=== PATIENT | female | born 1990 | race Two or more races ===

== ENCOUNTER 2021-02-07 08:53 | Inpatient (IN) | payer SELFPAY ==
[~2021-02-07] VITALS: Ht 169.4 cm; Wt 66.8 kg
[2021-02-07 09:04] VITALS: BP 135/90
[2021-02-07] MEDS ORDERED: IV RINGERS,LACTATED 1000ML 1,000 ML IV SCH ×3 (09:15→13:30)
[2021-02-07 09:50] LABS: BILIRUBIN,URINE NEGATIVE (NEG); CLARITY,URINE CLEAR; COLOR,URINE YELLOW; NITRITE,URINE NEGATIVE (NEG); PROTEIN,URINE NEGATIVE (NEG-TRACE); UROBILINOGEN,URINE 0.2 mg/dL (0.2 mg/dL)
[2021-02-07 09:55] LABS: BACTERIA,URINE FEW /HPF (0-FEW); RBC,URINE OCC /HPF (0-2); WBC,URINE 0 /HPF (0-4)
[2021-02-07 10:27] LABS: AMNIO PT POSITIVE
[2021-02-07] MEDS ORDERED: OXYTOCIN 30 UNIT/500 ML PREMIX 500 ML IV PRN ×3 (10:45→16:30)
[2021-02-07] MEDS ORDERED: IBUPROFEN 400 MG TABLET. PO PRN (10:45)
[2021-02-07] MEDS ORDERED: LIDOCAINE 1% PF 30 ML VIAL. INJ PRN (10:45)
[2021-02-07] MEDS ORDERED: 0.9 % SODIUM CHLORIDE 10 ML DISP.SYRIN. IV PRN ×2 (10:45→16:30)
[2021-02-07] MEDS ORDERED: TERBUTALINE 1 MG/ML VIAL. SQ PRN (10:45)
[2021-02-07 10:58] LABS: BASO # 0.1 x10^3/uL (0.0-0.2); BASO % 0 % (0-3); EOS % 0 % (0-3); HEMATOCRIT 33.8 % (36.0-47.0); HEMOGLOBIN 11.5 g/dL (12.0-15.5); LYMPH # 1.6 x10^3/uL (1.0-4.8); LYMPH % 9 % (24-48); MEAN CORPUSCULAR HEMOGLOBIN 29 pg (25-35); MEAN CORPUSCULAR HGB CONC 34 g/dL (31-37); MEAN CORPUSCULAR VOLUME 84 fL (79-100); MONO % 6 % (0-9); NEUT % 85 % (31-73); PLATELET COUNT 239 x10^3/uL (140-400); RED BLOOD COUNT 4.01 x10^6/uL (3.50-5.40); RED CELL DISTRIBUTION WIDTH 14.9 % (11.5-14.5); WHITE BLOOD COUNT 17.8 x10^3/uL (4.0-11.0)
[2021-02-07 11:07] LABS: CREATININE 0.6 mg/dL (0.6-1.0); GFR 118.2
[2021-02-07 11:13] LABS: ALBUMIN 2.6 g/dL (3.4-5.0); ALBUMIN/GLOBULIN RATIO 0.7 (1.0-1.7); TOTAL BILIRUBIN 0.2 mg/dL (0.2-1.0); TOTAL PROTEIN 6.6 g/dL (6.4-8.2)
--- NOTE | 2021-02-07 11:16 | PDOC1 ---
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 An aminosure was sent and returned positive. The pt was found to be dilated to 3 cm. She had previously been 1-2 cm in the office two days prior. The pts has been complicated by GDM. She was dxed with GDM in 12/05/20, but only started recording her FSBS at the beginning of this month. Her FSBS have been relatively good since that time. At the last visit over half of her fastings are above 90, but most are very close. The majority of her PP are below 120. She has also developed BP issues over the last two wks. She has remained w/o s/s of preeclampsia. PMH: Denies PSH: Denies Meds: PNV All: NKDA OBHx: G1 SH: no tob, no EtOH FH: noncontributory Allergies: Coded Allergies: No Known Drug Allergies (Unverified , 02/07/21) Physical Exam: PE: GENERAL: No apparent distress. Alert and oriented. HEENT: Head normocephalic, atraumatic. NECK: Supple LUNGS: Clear to auscultation. HEART: RRR, S1, S2 present, pulses intact ABDOMEN: Soft, positive bowel sounds. EXTREMITIES: No cyanosis or edema. NEUROLOGIC: Normal speech, normal tone PSYCHIATRIC: Normal affect, normal mood. SKIN: No ulceration. FHT: 150s +acels/no decels/mLTV Start: 2-3 min SVE: 4/75/-2 Labs: Laboratory Tests Test 02/07/21 09:10 02/07/21 09:12 02/07/21 10:40 Urine Collection Type Unknown Urine Color Yellow Urine Clarity Clear Urine pH 7.0 (<5.0-8.0) Urine Specific [place] 1.015 (1.000-1.030) Urine Protein Negative mg/dL (NEG-TRACE) Urine Glucose (UA) Negative mg/dL (NEG) Urine Ketones (Stick) 40 mg/dL (NEG) Urine Blood Small (NEG) Urine Nitrite Negative (NEG) Urine Bilirubin Negative (NEG) Urine Urobilinogen Dipstick 0.2 mg/dL (0.2 mg/dL) Urine Leukocyte Esterase Negative (NEG) Urine RBC Occ /HPF (0-2) Urine WBC 0 /HPF (0-4) Urine Squamous Epithelial Cells Mod /LPF Urine Bacteria Few /HPF (0-FEW) Urine Mucus Slight /LPF Amniotic Fluid Swab Test Positive White Blood Count 17.8 x10^3/uL (4.0-11.0) H Red Blood Count 4.01 x10^6/uL (3.50-5.40) Hemoglobin 11.5 g/dL (12.0-15.5) L Hematocrit 33.8 % (36.0-47.0) L Mean Corpuscular Volume 84 fL (79-100) Mean Corpuscular Hemoglobin 29 pg (25-35) Mean Corpuscular Hemoglobin Concent 34 g/dL (31-37) Red Cell Distribution Width 14.9 % (11.5-14.5) H Platelet Count 239 x10^3/uL (140-400) Neutrophils (%) (Auto) 85 % (31-73) H Lymphocytes (%) (Auto) 9 % (24-48) L Monocytes (%) (Auto) 6 % (0-9) Eosinophils (%) (Auto) 0 % (0-3) Basophils (%) (Auto) 0 % (0-3) Neutrophils # (Auto) 15.0 x10^3/uL (1.8-7.7) H Lymphocytes # (Auto) 1.6 x10^3/uL (1.0-4.8) Monocytes # (Auto) 1.0 x10^3/uL (0.0-1.1) Eosinophils # (Auto) 0.0 x10^3/uL (0.0-0.7) Basophils # (Auto) 0.1 x10^3/uL (0.0-0.2) Sodium Level 135 mmol/L (136-145) L Potassium Level 4.0 mmol/L (3.5-5.1) Chloride Level 102 mmol/L (98-107) Carbon Dioxide Level 22 mmol/L (21-32) Anion Gap 11 (6-14) Blood Urea Nitrogen 6 mg/dL (7-20) L Creatinine 0.6 mg/dL (0.6-1.0) Estimated GFR (Cockcroft-Gault) 118.2 BUN/Creatinine Ratio 10 (6-20) Glucose Level 74 mg/dL (70-99) Calcium Level 9.0 mg/dL (8.5-10.1) Total Bilirubin 0.2 mg/dL (0.2-1.0) Aspartate Amino Transferase (AST) 16 U/L (15-37) Alanine Aminotransferase (ALT) 19 U/L (14-59) Alkaline Phosphatase 177 U/L (46-116) H Total Protein 6.6 g/dL (6.4-8.2) Albumin 2.6 g/dL (3.4-5.0) L Albumin/Globulin Ratio 0.7 (1.0-1.7) L Laboratory Tests 02/07/21 10:40 Laboratory Tests 02/07/21 10:40 Laboratory Tests 02/07/21 10:40 Assessment & Plan: A/P 30y @ 39.0 by 23wk 1.) SROM pt with regular ctxs, will augment if stalls 2.) A1DM will check FSBS in labor 3.) GHTN BPs mild, UA with neg protein, PIH labs pending, no s/s of preeclampsia 4.) TDAP given 11/20/20 5.) Fetus cat I FHT 6.) GBS neg ALESHIA GARCIA MD Feb 07, 2021 11:16
[2021-02-07] MEDS ORDERED: L&D EPIDURAL SYRINGE 50 ML ONE (12:54)
[2021-02-07] MEDS ORDERED: ROPIVacaine 0.2% PF 10 ML VIAL. ONE ×2 (12:54→13:00)
[2021-02-07] MEDS ORDERED: L&D EPIDURAL 50 ML SYRINGE. ONE (13:00)
[2021-02-07] MEDS ORDERED: IV RINGERS,LACTATED 500ML 500 ML IV PRN (13:30)
[2021-02-07] MEDS ORDERED: ePHEDrine PF IN SALINE 50 MG/10 ML SYRINGE. IV PRN (13:30)
[2021-02-07] MEDS ORDERED: L&D EPIDURAL SYRINGE 50 ML EPID PRN (13:30)
[2021-02-07] MEDS ORDERED: ROPIVacaine 0.2% PF 10 ML VIAL. EPID PRN (13:30)
[2021-02-07] MEDS ORDERED: PHENYLEPHRINE in 0.9% NACL PF 1 MG/10 ML SYRINGE. IV PRN (13:30)
[2021-02-07] MEDS ORDERED: ATROPINE 0.5 MG/5 ML DISP.SYRINGE. IV PRN (13:30)
[2021-02-07] MEDS ORDERED: NALOXONE 0.4 MG/ML VIAL. IV PRN (13:30)
[2021-02-07] MEDS ORDERED: BUPIVACAINE MPF 0.25% 30 ML VIAL. EPID PRN (13:30)
[2021-02-07] MEDS ORDERED: fentaNYL PF VIAL 100 MCG/2 ML VIAL EPID PRN (13:30)
[2021-02-07] MEDS ORDERED: LIDOCAINE 2% PF 5 ML VIAL. ONE ×2 (14:25→14:28)
[2021-02-07] MEDS ORDERED: ePHEDrine PF IN SALINE 50 MG/10 ML SYRINGE. IV ONE (14:25)
[2021-02-07] MEDS ORDERED: PHENYLEPHRINE in 0.9% NACL PF 1 MG/10 ML SYRINGE. IV ONE ×2 (14:25→15:24)
[2021-02-07] MEDS ORDERED: OXYTOCIN 10 UNIT/ML VIAL. ONE (14:25)
[2021-02-07] MEDS ORDERED: MORPHINE PF 10 MG/10 ML AMPUL. ONE (14:29)
[2021-02-07] MEDS ORDERED: CITRIC ACID/SODIUM CITRATE 30 ML SOLUTION. PO ONE (14:30)
[2021-02-07] MEDS ORDERED: AZITHROMYCIN 500 MG in IV NORMAL SALINE 250ML 250 ML IV ONE (14:30)
--- NOTE | 2021-02-07 16:07 | PDOC4 ---
OPERATIVE NOTE: PreOp Dx: 1.) IUP @ 39.0 by 23wk u/s, 2.) SROM, 3.) Active labor, 4.) A1DM, 5.) GHTN, 6.) GBS neg PostOp Dx: same Procedure: Primary LTCS Surgeon: Sandee Garcia Anesthesia: Epi EBL: 700 cc Fluids: 1000 cc UOP: 350 cc Complications: None Findings: viable male delivered at 1505. Wt 6 lb 10 oz. APGARS 8/9. Nml maternal anatomy. Small fibroid on anterior. Cord ABG pH 7.21, BE -3. VBG pH 7.31, BE -6. Path: Cord blood, Cord ABG and placenta ALESHIA GARCIA MD Feb 07, 2021 16:07
[2021-02-07] MEDS: KETOROLAC 30 MG/ML VIAL. IVP PRN (16:27)
[2021-02-07] MEDS ORDERED: TDaP (Adacel) per PROTOCOL. MC PRN (16:30)
[2021-02-07] MEDS ORDERED: oxyCODONE/APAP 5/325 1 TAB TABLET PO PRN (16:30)
[2021-02-07] MEDS ORDERED: MMR per PROTOCOL. MC PRN (16:30)
[2021-02-07] MEDS ORDERED: diphenhydrAMINE ORAL ELIXIR 12.5 MG/5 ML ML PO PRN (16:30)
[2021-02-07] MEDS ORDERED: ACETAMINOPHEN 325 MG TABLET. PO PRN (16:30)
[2021-02-07] MEDS ORDERED: BENZOCAINE 20% TOPICAL AEROSOL SPRAY 57GM CAN. TP PRN (16:30)
[2021-02-07] MEDS: FERROUS SULFATE 325 MG TABLET. PO SCH (17:00)
--- NOTE | 2021-02-07 17:24 | OP ---
DATE OF SURGERY: 02/07/2021 PREOPERATIVE DIAGNOSES: 1. Intrauterine at 39 weeks and 0 days by 23-week ultrasound. 2. Spontaneous rupture of membranes. 3. Active labor. 4. A1 diabetes. 5. Gestational hypertension. 6. Group B Streptococcus negative. POSTOPERATIVE DIAGNOSES: 1. Intrauterine at 39 weeks and 0 days by 23-week ultrasound. 2. Spontaneous rupture of membranes. 3. Active labor. 4. A1 diabetes. 5. Gestational hypertension. 6. Group B Streptococcus negative. 7. Breech. PROCEDURE: Primary low transverse . SURGEON: Alejandro Obando MD. ANESTHESIA: Epidural. ESTIMATED BLOOD LOSS: 700 mL. FLUIDS: 1000 mL. URINE OUTPUT: 350 mL. COMPLICATIONS: None. FINDINGS: Viable male infant delivered at 15:05, weighing 6 pounds 10 ounces with Apgars of 8 and 9. Normal maternal anatomy noted. Small fibroid was noted on the anterior surface of the uterus. Cord ABG was found to have a pH of 7.21, base excess of -3 and a venous blood gas of a pH of 7.31 and a base excess of -6. PATHOLOGY: Cord blood, cord ABG and placenta. INDICATIONS: The patient is a 30-year-old 1, para 0 who presented to Labor and Delivery at 39 weeks and 0 days by 23-week ultrasound with leakage of fluid and contractions. An AmniSure was performed and returned positive. The patient was found to be 3 cm dilated. Two days prior, she was 1-2 cm in the office. She was subsequently admitted. The patient's was complicated by gestational diabetes. She was diagnosed with gestational diabetes on 12/05, but only started recording blood sugars at the beginning of January. Her blood sugars had remained relatively normal. Over the last 2 weeks, the patient had developed blood pressure issues, but had had no signs or symptoms of preeclampsia. When the patient was admitted, she also had mild range blood pressures. The patient progressed throughout the day. She was checked after her epidural was placed and at 7 cm dilation it felt like the baby may be breech. A bedside ultrasound was performed to confirm that the patient was breech. Once her breech presentation had been established, the OR team was mobilized for a primary . DESCRIPTION OF PROCEDURE: The patient was taken to the operating room where an epidural was re-bolused for adequate pain control. The patient was prepped and draped in normal sterile fashion. A Pfannenstiel skin incision was made approximately 2 cm above her pubic symphysis and carried down to the underlying layer of fascia. The fascia was then nicked in the midline. Fascial incision was then extended laterally with Mckenzie scissors. The superior aspect of the fascial incision was then grasped with Marilynn clamps, elevated and the underlying rectus muscle was dissected off with Mckenzie scissors. Attention was then turned to the inferior aspect of the fascial incision, which was grasped with Marilynn clamps, elevated, and underlying rectus muscle was dissected off with Mckenzie scissors. At that point, the midline of the rectus muscle was identified and . The peritoneum was then grasped with 2 hemostats and entered sharply with Metzenbaum scissors. The peritoneal incision was then extended superiorly and inferiorly with good visualization of the bladder with traction and countertraction. At that point, Hiram ring was then placed in the abdomen to better visualize the lower uterine segment. Bladder flap was created with Metzenbaum scissors. Lower uterine segment was then incised with a scalpel. The hysterotomy was then extended with traction and countertraction. The infant's bottom was then brought to the hysterotomy and delivered with fundal pressure. The legs were then delivered. Infant was then rotated to sacrum anterior. At that point, the infant was delivered to the level of scapula. Right arm was then swept medially and delivered followed by the left arm, which was swept medially and delivered. At that point, the 's head was then flexed with the Rgwashdhk-Cltannv-Erwe maneuver. The rest of infant was delivered atraumatically. At that point, the nose and mouth were bulb suctioned. The cord was double clamped and cut and was handed over to the waiting intake counselor. The placenta was then removed manually and the uterus was cleared of all clots and debris. The uterine incision was then repaired with #1 chromic in a running locked fashion. A second layer of the same suture was used to imbricate. There was one area just left of midline that was bleeding. A 2-0 chromic was placed with a [id number]-[id number] stitch and hemostasis was achieved. At that point, the gutters were copiously irrigated and cleared of all clots and debris. The Hiram ring was then removed. The peritoneum was reapproximated with 2-0 Vicryl in a running fashion. The muscle was reapproximated with 2-0 Vicryl in a running fashion. The fascia was then closed with 0 Vicryl in a running fashion. The skin was then closed with 4-0 Monocryl in subcuticular manner. Sponges, laps and needles were correct x 3. Two grams of Ancef as well as azithromycin 1 gram were given prior to the procedure. The patient was taken to recovery room in stable condition. GISELA DR: Wicho TID: [id number] [facility]
[2021-02-07 20:22] VITALS: BP 143/86
[2021-02-08 00:40] VITALS: BP 131/70
[2021-02-08] MEDS: KETOROLAC 30 MG/ML VIAL. IVP PRN ×2 (05:42→17:17)
[2021-02-08 05:52] VITALS: BP 127/71
[2021-02-08 08:01] LABS: HEMOGLOBIN 9.2 g/dL (12.0-15.5); RED BLOOD COUNT 3.28 x10^6/uL (3.50-5.40); RED CELL DISTRIBUTION WIDTH 15.3 % (11.5-14.5); WHITE BLOOD COUNT 15.4 x10^3/uL (4.0-11.0)
[2021-02-08 08:30] LABS: CALCIUM 8.2 mg/dL (8.5-10.1); CREATININE 0.6 mg/dL (0.6-1.0); GFR 118.2; POTASSIUM 3.9 mmol/L (3.5-5.1)
[2021-02-08] MEDS: DOCUSATE SODIUM 100 MG CAPSULE. PO PRN ×2 (08:56→18:34)
[2021-02-08] MEDS: FERROUS SULFATE 325 MG TABLET. PO SCH ×2 (08:56→18:34)
[2021-02-08] MEDS: PRENATAL MULTIVITAMIN TABLET. PO SCH (08:56)
[2021-02-08] MEDS: MULTIVITAMIN with MINERAL TABLET. PO SCH (09:00)
--- NOTE | 2021-02-08 11:25 | PDOC ---
TIRE ASSEMBLER PROGRESS NOTE Date of Service: DATE: 02/08/21 TIME: 11:24 Subjective: Pt with good pain control. Saskia PO. Voiding. Minimal lochia. Objective: Vital Signs: Vital Signs Date Time Temp Pulse Resp B/P (MAP) Pulse Ox O2 Delivery O2 Flow Rate FiO2 02/07/21 09:04 98.7 96 20 135/90 (105) 98 Room Air 98.7 Vital Signs Date Time Temp Pulse Resp B/P (MAP) Pulse Ox O2 Delivery O2 Flow Rate FiO2 02/08/21 05:52 98.4 103 18 127/71 (89) Room Air 98.4 02/07/21 09:04 98 Labs: Laboratory Tests Test 02/07/21 11:29 02/08/21 07:35 02/08/21 08:58 Glucose (Fingerstick) 88 mg/dL (70-99) 73 mg/dL (70-99) White Blood Count 15.4 x10^3/uL (4.0-11.0) H Red Blood Count 3.28 x10^6/uL (3.50-5.40) L Hemoglobin 9.2 g/dL (12.0-15.5) L Hematocrit 28.0 % (36.0-47.0) L Mean Corpuscular Volume 85 fL (79-100) Mean Corpuscular Hemoglobin 28 pg (25-35) Mean Corpuscular Hemoglobin Concent 33 g/dL (31-37) Red Cell Distribution Width 15.3 % (11.5-14.5) H Platelet Count 198 x10^3/uL (140-400) Sodium Level 141 mmol/L (136-145) Potassium Level 3.9 mmol/L (3.5-5.1) Chloride Level 107 mmol/L (98-107) Carbon Dioxide Level 26 mmol/L (21-32) Anion Gap 8 (6-14) Blood Urea Nitrogen 5 mg/dL (7-20) L Creatinine 0.6 mg/dL (0.6-1.0) Estimated GFR (Cockcroft-Gault) 118.2 Glucose Level 77 mg/dL (70-99) Calcium Level 8.2 mg/dL (8.5-10.1) L Laboratory Tests 02/08/21 07:35 Laboratory Tests 02/08/21 07:35 Laboratory Tests 02/08/21 07:35 Physical Exam: GENERAL: No apparent distress. Alert and oriented. HEENT: Head normocephalic, atraumatic. NECK: Supple LUNGS: Clear to auscultation. HEART: RRR, S1, S2 present, pulses intact ABDOMEN: Soft, positive bowel sounds. EXTREMITIES: No cyanosis or edema. NEUROLOGIC: Normal speech, normal tone PSYCHIATRIC: Normal affect, normal mood. SKIN: No ulceration. Inc: C/D/I FFNT below umb No C/C/E Assessment & Plan: A/P 30y POD #1 s/p primary LTCS 1.) PO doing well 2.) A1DM fasting FSBS wnl this am 3.) GHTN BPs continue to be nml to mild, UA with neg protein, PIH labs wnl, no s/s of preeclampsia 4.) TDAP given 11/20/20 5.) Anemia Hgb 11.5 -> 9.2, on Fe BID 6.) Cont PO care ALESHIA GARCIA MD Feb 08, 2021 11:25
[2021-02-08] MEDS: oxyCODONE/APAP 5/325 1 TAB TABLET PO PRN ×3 (12:23→22:16)
[2021-02-08 12:24] VITALS: BP 131/76
[2021-02-08 15:31] VITALS: BP 132/65
[2021-02-08 18:36] VITALS: BP 134/78
[2021-02-08 22:18] VITALS: BP 144/81
[2021-02-09] MEDS: IBUPROFEN 400 MG TABLET. PO PRN ×3 (04:47→23:38)
[2021-02-09 04:54] VITALS: BP 134/82
[2021-02-09] MEDS: oxyCODONE/APAP 5/325 1 TAB TABLET PO PRN ×3 (07:50→17:24)
[2021-02-09 07:52] VITALS: BP 128/75
[2021-02-09 08:19] VITALS: BP 128/81
[2021-02-09] MEDS: MULTIVITAMIN with MINERAL TABLET. PO SCH (09:00)
[2021-02-09] MEDS: PRENATAL MULTIVITAMIN TABLET. PO SCH (09:03)
[2021-02-09] MEDS: FERROUS SULFATE 325 MG TABLET. PO SCH ×2 (09:03→17:23)
--- NOTE | 2021-02-09 09:16 | PDOC ---
PRINTER SLOTTER FEEDER PROGRESS NOTE Date of Service: DATE: 02/09/21 TIME: 09:15 Subjective: Pt is still with moderate amt of pain before pain meds. Saskia PO. Voiding. Minimal lochia. Objective: Vital Signs: Vital Signs Date Time Temp Pulse Resp B/P (MAP) Pulse Ox O2 Delivery O2 Flow Rate FiO2 02/08/21 12:23 Room Air 02/08/21 12:24 98.8 103 16 131/76 (94) 98.8 Vital Signs Date Time Temp Pulse Resp B/P (MAP) Pulse Ox O2 Delivery O2 Flow Rate FiO2 02/09/21 07:52 98.3 82 20 128/75 (92) 98.3 02/09/21 04:54 Room Air Physical Exam: GENERAL: No apparent distress. Alert and oriented. HEENT: Head normocephalic, atraumatic. NECK: Supple LUNGS: Clear to auscultation. HEART: RRR, S1, S2 present, pulses intact ABDOMEN: Soft, positive bowel sounds. EXTREMITIES: No cyanosis or edema. NEUROLOGIC: Normal speech, normal tone PSYCHIATRIC: Normal affect, normal mood. SKIN: No ulceration. Inc: C/D/I FFNT below umb No C/C/E Assessment & Plan: A/P 30y POD #2 s/p primary LTCS 1.) PO doing well 2.) A1DM fasting FSBS wnl 3.) GHTN BPs nml to mild, UA with neg protein, PIH labs wnl, no s/s of preeclampsia 4.) TDAP given 11/20/20 5.) Anemia Hgb 11.5 -> 9.2, on Fe BID 6.) Cont PO care ALESHIA GARCIA MD Feb 09, 2021 09:16
[2021-02-09 15:00] VITALS: BP 141/83
[2021-02-09] MEDS: DOCUSATE SODIUM 100 MG CAPSULE. PO PRN (17:23)
[2021-02-09 17:30] VITALS: BP 135/83
[2021-02-09 22:46] VITALS: BP 146/71
[2021-02-10 04:41] VITALS: BP 127/63
[2021-02-10] MEDS: oxyCODONE/APAP 5/325 1 TAB TABLET PO PRN (07:13)
[2021-02-10 08:40] VITALS: BP 121/82
[2021-02-10] MEDS ORDERED: FERR325T14 PO (09:13)
[2021-02-10] MEDS ORDERED: OXYC1TAB15 PO (09:13)
[2021-02-10] MEDS ORDERED: DOCU-109 PO (09:13)
[2021-02-10] MEDS ORDERED: IBUP-1060 PO (09:13)
--- NOTE | 2021-02-10 09:16 | PDOC ---
BIOMASS POWER PLANT MANAGER PROGRESS NOTE Date of Service: DATE: 02/10/21 TIME: 09:15 Subjective: Pt with good pain control. Saskia PO. Voiding. Minimal lochia Objective: Vital Signs: Vital Signs Date Time Temp Pulse Resp B/P (MAP) Pulse Ox O2 Delivery O2 Flow Rate FiO2 02/09/21 07:50 20 02/09/21 07:52 98.3 82 128/75 (92) 98.3 02/09/21 08:19 97 02/09/21 20:00 Room Air Vital Signs Date Time Temp Pulse Resp B/P (MAP) Pulse Ox O2 Delivery O2 Flow Rate FiO2 02/10/21 08:40 98.1 81 20 121/82 (95) 98.1 02/10/21 07:13 Room Air 02/09/21 15:00 99 Physical Exam: GENERAL: No apparent distress. Alert and oriented. HEENT: Head normocephalic, atraumatic. NECK: Supple LUNGS: Clear to auscultation. HEART: RRR, S1, S2 present, pulses intact ABDOMEN: Soft, positive bowel sounds. EXTREMITIES: No cyanosis or edema. NEUROLOGIC: Normal speech, normal tone PSYCHIATRIC: Normal affect, normal mood. SKIN: No ulceration. Inc: C/D/I FFNT below umb No C/C/E Assessment & Plan: A/P 30y POD #3 s/p primary LTCS 1.) PO doing well 2.) A1DM fasting FSBS wnl 3.) GHTN BPs nml to mild, UA with neg protein, PIH labs wnl, no s/s of preeclampsia 4.) TDAP given 11/20/20 5.) Anemia Hgb 11.5 -> 9.2, on Fe BID 6.) D/c home ALESHIA GARCIA MD Feb 10, 2021 09:16
[2021-02-10 10:55] VITALS: BP 156/78
--- NOTE | 2021-02-10 12:00 | DS ---
DATE OF DISCHARGE: 02/10/2021 ADMISSION DIAGNOSES: 1. Intrauterine at 39 weeks and 0 days by 23-week ultrasound. 2. Spontaneous rupture of membranes. 3. A1 diabetes. 4. Gestational hypertension. 5. Status post Tdap. 6. Group B Streptococcus negative. DISCHARGE DIAGNOSES: 1. Intrauterine at 39 weeks and 0 days by 23-week ultrasound. 2. Spontaneous rupture of membranes. 3. A1 diabetes. 4. Gestational hypertension. 5. Status post Tdap. 6. Group B Streptococcus negative. 7. Breech presentation. PROCEDURE: Primary lower transverse section. BRIEF HOSPITAL COURSE: The patient is a 30-year-old 1, para 0, who presented to Labor and Delivery at 39 weeks and 0 days by 23-week ultrasound with leakage of fluid and contractions. An AmniSure was performed and returned positive. The patient was 3 cm at that time, which was a progression from when she was 2 days prior, which was 1-2 cm. The patient was subsequently admitted. The patient's was complicated by gestational hypertension. She was diagnosed in the middle of November, but had only started recording her blood sugars at the beginning of January. Her blood sugars remained relatively normal. Over the past 2 weeks in the office, the patient was found to have elevated blood pressures, but was without signs or symptoms of preeclampsia. When the patient presented to Labor and Delivery, she was still having mild range blood pressures. PIH labs were sent and ultimately turned normal as well as a UA, which had negative protein. The patient progressed throughout the day. When she reached 7 cm, we first became concerned that the patient may be in breech position. A bedside ultrasound was performed, which confirmed the patient to be breech. The OR team was mobilized and the patient underwent a primary . See operative note for full detail. By postoperative day #3, the patient was meeting all discharge criteria and subsequently discharged home. Of note, her fasting fingerstick on postoperative day #1 was normal, so her fingersticks were stopped. The patient's blood pressures remained normal to mild after delivery with most of them being normal and the patient's hemoglobin was found to be 11.5 on admission and 9.2 after delivery. DISCHARGE INSTRUCTIONS: The patient was told not to lift anything greater than 20 pounds, have pelvic rest for 6 weeks, not to drive on narcotics. CALL IF: The patient was to call if she had fevers, chills, nausea and vomiting, abdominal pain or any additional questions or concerns. FOLLOWUP APPOINTMENT: The patient was to follow up on 02/19 at 2:00 p.m. for her incision check and blood pressure check. DISCHARGE MEDICATIONS: The patient was given a prescription for Percocet 5, fifteen pills; Motrin 800 mg, 30 pills; Colace 100 mg, 30 pills and ferrous sulfate 325 mg, 30 pills. EDU/JADON/BETTYE DR: Wicho TID: [id number]
--- NOTE | 2021-02-11 09:08 | PATHOLOGY ---
[facility] Accession Number: [id number] . 01 Material submitted: . placenta - CORD AND PLACENTA . 01 Clinical history: . INTRAUTERINE FELIX GESTATION SECTION SECTION OF MALE INFANT 39 WK . 02 Diagnosis: 317 gram term placenta of an estimated 39 weeks gestation with attached membranes and umbilical cord and separate segment of umbilical cord: - Small for estimated gestational age placenta (less than 3rd percentile). - Meconium staining of placental membranes. - Chorangiosis, focal . (JPM:pebbles; 02/10/2021) [facility] 02/10/2021 1709 Local . 02 Comment: There is no evidence of an acute chorioamnionitis or villitis. There are no infarcts. . (JPM:pebbles; 02/10/2021) . 02 Electronically signed: . Keshawn Seals MD, Pathologist NPI- [id number] . 01 Gross description: . Fixative: Formalin Labeled: Per the requisition: Cord and placenta Specimen received: An intact felix placenta to include disc, membranes, and umbilical cord. The additional segment of umbilical cord is identified within the container Dimensions: 16.8 x 14.5 x 2.0 cm membranes appearance: Wallace-pink and semitranslucent membrane rupture: 4.0 cm from placental disc membrane insertion: Marginal Umbilical cord: 11.0 cm (attached to disc) and 20.5 cm (additional segment) in length, ranges from 0.9-3.2 cm in diameter Umbilical cord insertion: Eccentric, 5.0 cm from the closest placental margin Number of umbilical vessels: 3 Umbilical cord appearance: White-wallace and gelatinous with 2 spirals per 10 cm Trimmed placental weight: 317 g surface: Blue-senior and well vascularized with areas of senior-green discoloration. Maternal surface: Red-brown and rubbery with focally disrupted cotyledons which appears entirely present. Abnormalities: None identified . Laundry Aid sections are submitted as follows: A1 umbilical cord A2 umbilical cord and membranes, rolled A3 territory representative peripheral placenta, full-thickness section A4 territory representative central placenta, full-thickness section A5 additional maternal surface (MRF; 02/09/2021) MFE/MFE 02/09/2021 2209 Local . 02 Pathologist provided ICD-10: O77.0, Z37.9, Z3A.39 . 02 CPT . 499244 Specimen Comment: A courtesy copy of this report has been sent to [phone] Specimen Comment: Report sent to Performed at: 01 [facility] [address] [facility] [address], [place] [id number] MD Christiano Stinson MD Phone: [phone] Performed at: 02 [facility] [address] [place], [place] [id number] MD Keshawn Seals MD Phone: [phone]
== END 2021-02-10 11:00 | disposition home or self-care (01) | DRG 788 ==
LOC: 3 SO LND 08:53 → OBSVTOIN 10:38
PROVIDERS: ADMIT Obstetrics & Gynecology; ATTEND Obstetrics & Gynecology
PROC: 10D00Z1 Extraction of Products of Conception, Low, Open Approach (ICD-10-PCS; principal; 2021-02-07)
DX: O24.420 Gestational diabetes mellitus in childbirth, diet controlled (principal); O13.4 Gestational [pregnancy-induced] hypertension without significant proteinuria, complicating childbirth; O32.1XX0 Maternal care for breech presentation, not applicable or unspecified; O34.13 Maternal care for benign tumor of corpus uteri, third trimester; Z37.0 Single live birth; Z3A.39 39 weeks gestation of pregnancy; D25.9 Leiomyoma of uterus, unspecified; Z20.822 Contact with and (suspected) exposure to COVID-19; O90.81 Anemia of the puerperium; D64.9 Anemia, unspecified
CPT/HCPCS: 36415; 80048; 80053; 81001; 82962; 84112; 85025; 85027; 86850; 86900; 86901; 87426; G0378; G0379; J0456; J0690; J1885; J2274; J2370; J2590; J2795; J3010; J7050; J7120; U0003; U0005; J7030